=== PATIENT | female | born 1980 | race African-American/Black ===

== ENCOUNTER 2016-08-14 14:06 | Emergency (ER) | payer OTHER ==
[~2016-08-14 14:06] MED LIST: ACETAMINOPHEN PO; AUGMENTIN875 MG DOB; AUGMENTIN875 MG PO; CIPRO PO; DIOVAN PO; FIORICET 50-321 EACH PO; FLAGYL PO; HYDROCHLOROTH12.5 MG PO; HYDROCHLOROTHIA25 MG PO; IBUPROFEN800 MG PO; LEVAQUIN PO; LIDOCAINE VISCOU1 ML EXT; LISINOPRIL-HCTZ1 T15 PO; LISINOPRIL20 MG PO; LORTAB 5/500 TA1 TA1 PO; LORTAB ELIXIR15 ML PO; METOPROLOL TART25 MG PO; METRONIDAZOLE PO; MOTRIN600 MG PO; NEURONTIN300 MG PO; NORCO 5/325 TAB1 TAB PO; PERCOCET 5-3251 TAB PO; PERCOCET 51 UDTAB 5/ DOB; PERCOCET5/325 PO; TOPROL XL; TOPROL XL PO; TRAZODONE HCL100 MG PO; VIBRAMYCIN100 M1 DOB; WELLBUTRIN XL; ZANTAC300 MG PO; ZESTORETIC 20/11 TAB; ZOLOFT PO; ZOLOFT100 MG PO
== END 2016-08-14 15:23 | disposition home or self-care (01) ==
LOC: SED 14:06
DX: L02.213 Cutaneous abscess of chest wall (principal); F32.9 Major depressive disorder, single episode, unspecified; K21.9 Gastro-esophageal reflux disease without esophagitis; Z98.51 Tubal ligation status; Z98.890 Other specified postprocedural states; Z79.899 Other long term (current) drug therapy
CPT/HCPCS: 10060; 99283

== ENCOUNTER 2016-08-16 14:44 | Emergency (ER) | payer OTHER | END 2016-08-16 15:00 | disposition home or self-care (01) | LOC: SED 14:44 | DX: Z48.01 Encounter for change or removal of surgical wound dressing (principal); G89.18 Other acute postprocedural pain | CPT/HCPCS: 99282; 99283 ==